=== PATIENT | female | born 1940 ===

== ENCOUNTER 2017-03-18 10:24 | Inpatient (IN) | payer SELFPAY ==
[2017-03-18 10:25] VITALS: BMI 33.0
[2017-03-18 10:41] LABS: BASO # 0.1 K/uL (0.0-0.2); BASO % 0.6 % (0.0-2.0); EOS # 0.3 K/uL (0.0-0.7); EOS % 2.1 % (0.0-4.0); HEMATOCRIT 39.1 % (34.0-47.0); LYMPH # 8.2 K/uL (1.0-4.3); LYMPH % 52.2 % (20.0-40.0); MEAN CELL VOLUME 92.9 fL (81.0-99.0); MEAN CORPUSCULAR HEMOGLOBIN 30.2 pg (27.0-31.0); MEAN CORPUSCULAR HGB CONC 32.5 g/dL (33.0-37.0); MEAN PLATELET VOLUME 10.3 fL (7.2-11.7); MONO # 1.1 K/uL (0.0-0.8); NRBC % 0.1 % (0.0-2.0); RED CELL DISTRIBUTION WIDTH 12.7 % (11.5-14.5); WHITE BLOOD COUNT 15.6 K/uL (4.8-10.8)
--- NOTE | 2017-03-18 10:43 | C.PDOC ---
History Of Present Illness 74 y/o female with PMHx of HTN presents to ED as per son stating he found her unconscious. Patient was previously noted to be well before being unconscious. Patient arrived to ED unresponsive. Patient is visiting from [facility]. No other complaints at this time. Chief Complaint (Nursing): Altered Mental Status History Per: Family (SON ) History/Exam Limitations: Clinical Condition Onset/Duration Of Symptoms: Hrs Current Symptoms Are (Timing): Still Present Past Medical History Reviewed: Historical Data, Nursing Documentation, Vital Signs Vital Signs: Last Vital Signs Temp 96.3 F L 03/19/17 16:00 Pulse 76 03/19/17 17:00 Resp 12 03/19/17 17:00 BP 161/86 H 03/19/17 16:45 Pulse Ox 100 03/19/17 17:49 - Medical History PMH: HTN Family History: States: No Known Family Hx - Social History Hx Alcohol Use: No Hx Substance Use: No - Immunization History Hx Tetanus Toxoid Vaccination: No Hx Influenza Vaccination: No Hx Pneumococcal Vaccination: No Review Of Systems Review Of Systems: ROS cannot be obtained secondary to pt's inabilty to answer questions. Physical Exam - Physical Exam Skin: Warm Head: Atraumatic Eye(s): bilateral: PERRL (minimally reactive) Nose: No Epistaxis Tongue: No Swelling Lips: No Swelling Neck: Supple Cardiovascular: Rhythm Regular Respiratory: No Accessory Muscle Use, No Rales, No Rhonchi Gastrointestinal/Abdominal: Soft Extremity: No Swelling Pulses: Left Radial: Normal, Right Radial: Normal Neurological/Psych: No Response To Commands ED Course And Treatment - Laboratory Results Result Diagrams: 03/19/17 06:46 03/19/17 06:46 O2 Sat by Pulse Oximetry: 100 (RA) Pulse Ox Interpretation: Normal Critical Care Time - Critical Care Note Total Time (in mins): 60 Documented critical care: time excludes all time spent performing seperately billable procedures. NIHSS Stroke Scale - Date/Time Evaluation Performed Date Performed: 03/18/17 Time Performed: 10:25 - How Severe is the Stoke Level of Consciousness: 3=Unresponsive LOC to Questions: 2=Neither correct LOC to commands: 2=Neither correct Best Gaze: 0=Normal Visual: 0=No visual loss Facial: 0=Normal Motor Arm - Left: 4=No movement Motor Arm - Right: 4=No movement Motor Leg - Left: 4=No movement Motor Leg - Right: 4=No movement Limb Ataxia: 0=Absent Sensory: 2=Severe to total loss Best Language: 3=Mute Dysarthia: 0=Normal articulation Extinction & Inattention (Neglect): 0=Normal, no object Score: 28 Severity Of Stroke: 21-42= Severe Stroke rTPA Inclusion/Exclusion - Refusal of Treatment Patient Refused Treatment: No - Inclusion Criteria for Altepase Patient is 18 years or Older: Yes Clinical DX Ischemic Stroke Cause Neurological Deficit: No Time of Onset Established Less Than 270 Mins Before TX Begin: Yes Risk/Benefit Discussed With Patient/Family Member Present: No Medical Decision Making Medical Decision Makin CT shows ICH. NSGY paged and surya paged for possible transfer. [address] Baker who says prognosis is extremely poor and rec no aggressive treatment. 1115 I spoke with the pts son and he agreed no aggressive measures at this time , no transfer, no CPR. EKG: Interpreted by Me Sinus Bradycardia 49 bpm first degree AV block No STEMI Head CT: Read by Radiologist (Dr. Benjamin, Rory ADAMS) PROCEDURE: CT HEAD WITHOUT CONTRAST. HISTORY: Code Stroke COMPARISON: None available. TECHNIQUE: Axial computed tomography images were obtained through the head/brain without intravenous contrast. Radiation dose: Total exam DLP = 1552.6 mGy-cm. This CT exam was performed using one or more of the following dose reduction techniques: Automated exposure control, adjustment of the mA and/or kV according to patient size, and/or use of iterative reconstruction technique. FINDINGS: HEMORRHAGE: Large parenchymal hemorrhage primarily affecting the right temporal parietal lobes as well as right frontal lobe. Direct extension, intraventricular hemorrhage with blood in the a lateral ventricles and 4th ventricle as well as 3rd ventricle. Profound cortical effacement, edema, midline shift. Nonvisualization of the basilar cisterns suggests a component of uncal herniation. There is a component of subarachnoid hemorrhage without extra-axial fluid. Please note on the axial images there is a hypodense well-circumscribed focus in the region of the right internal carotid artery and this may represent hemorrhage perhaps from right ICA aneurysm. No evidence of acute territorial infarction. CALVARIUM: Unremarkable. PARANASAL SINUSES: Unremarkable as visualized. No significant inflammatory changes. MASTOID AIR CELLS: Unremarkable as visualized. No inflammatory changes. OTHER FINDINGS: None. IMPRESSION: Large parenchymal hemorrhage right parietal region, with intraventricular hemorrhage, extensive edema, mass effect,, subarachnoid hemorrhage, midline shift and findings suggestive of uncal herniation. Additional details, information provided in the commentary. Code stroke protocol: Study completed 10:58 Radiologist notified 11:05 Results conveyed verbally at 11:07. I discussed the findings with the attending physician in the emergency department Stephan Levine M.D. Interpretation finalized and available for review 11:11. March 18, 2017. Disposition - Disposition Disposition: HOSPITALIZED Disposition Time: 11:42 Condition: CRITICAL - Clinical Impression Clinical Impression: Intracranial hemorrhage - PA / INTERNAL AUDIT SENIOR MANAGER / Resident Statement MD/DO has reviewed & agrees with the documentation as recorded. MD/DO has examined the patient and agrees with the treatment plan. - Scribe Statement The provider has reviewed the documentation as recorded by the Miguel Ángel Mix All medical record entries made by the Miguel Ángel were at my direction and personally dictated by me. I have reviewed the chart and agree that the record accurately reflects my personal performance of the history, physical exam, medical decision making, and the department course for this patient. I have also personally directed, reviewed, and agree with the discharge instructions and disposition.
[2017-03-18 10:48] LABS: CHLORIDE 104 mmol/L (98-107)
[2017-03-18 10:49] LABS: INR 0.9; SODIUM 137 mmol/L (132-148)
[2017-03-18 10:50] LABS: POTASSIUM 3.7 mmol/L (3.6-5.2)
[2017-03-18 10:51] LABS: CARBON DIOXIDE 20 mmol/L (22-30); CHOLESTEROL 237 mg/dL (0-199); GFR AFRICAN-AMERICAN > 60
[2017-03-18 10:52] LABS: ALB/GLOB RATIO 1.4 (1.0-2.1); ALKALINE PHOSPHATASE 76 U/L (38-126); ALT/SGPT 58 U/L (9-52); AST/SGOT 38 U/L (14-36); BILIRUBIN,TOTAL 0.8 mg/dL (0.2-1.3); BLOOD UREA NITROGEN 28 mg/dL (7-17); CALCIUM 8.7 mg/dl (8.6-10.4); GLUCOSE,RANDOM 146 mg/dL (65-105); TOTAL PROTEIN 7.9 g/dL (6.3-8.3)
[2017-03-18] MEDS: niCARdipine IV 25 MG in Sodium Chloride 0.9% 240 ML IV SCH ×3 (11:11→20:52)
--- NOTE | 2017-03-18 11:14 | CT ---
PROCEDURE: CT HEAD WITHOUT CONTRAST. HISTORY: Code Stroke COMPARISON: None available. TECHNIQUE: Axial computed tomography images were obtained through the head/brain without intravenous contrast. Radiation dose: Total exam DLP = 1552.6 mGy-cm. This CT exam was performed using one or more of the following dose reduction techniques: Automated exposure control, adjustment of the mA and/or kV according to patient size, and/or use of iterative reconstruction technique. FINDINGS: HEMORRHAGE: Large parenchymal hemorrhage primarily affecting the right temporal parietal lobes as well as right frontal lobe. Direct extension, intraventricular hemorrhage with blood in the a lateral ventricles and 4th ventricle as well as 3rd ventricle. Profound cortical effacement, edema, midline shift. Nonvisualization of the basilar cisterns suggests a component of uncal herniation. There is a component of subarachnoid hemorrhage without extra-axial fluid. Please note on the axial images there is a hypodense well-circumscribed focus in the region of the right internal carotid artery and this may represent hemorrhage perhaps from right ICA aneurysm. No evidence of acute territorial infarction. CALVARIUM: Unremarkable. PARANASAL SINUSES: Unremarkable as visualized. No significant inflammatory changes. MASTOID AIR CELLS: Unremarkable as visualized. No inflammatory changes. OTHER FINDINGS: None. IMPRESSION: Large parenchymal hemorrhage right parietal region, with intraventricular hemorrhage, extensive edema, mass effect,, subarachnoid hemorrhage, midline shift and findings suggestive of uncal herniation. Additional details, information provided in the commentary. Code stroke protocol: Study completed 10:58 Radiologist notified 11:05 Results conveyed verbally at 11:07. I discussed the findings with the attending physician in the emergency department Stephan Levine M.D. Interpretation finalized and available for review 11:11. March 18, 2017.
[2017-03-18 11:33] LABS: ABG ALLEN TEST UNABLE; ABG MECHANICAL RATE 20; DRAW SITE LR
[2017-03-18 11:37] LABS: ATERIAL BLOOD GAS PEEP 5
--- NOTE | 2017-03-18 12:09 | RAD ---
HISTORY: code stroke COMPARISON: None available. TECHNIQUE: Chest, one view. FINDINGS: Endotracheal tube terminates approximately 4.5 cm above the ignacia. Examination limited by habitus and hypoinflation. LUNGS: No focal consolidation. Calcification projects over the left lung apex medially, unclear etiology, possibly vascular. Please note that chest x-ray has limited sensitivity for the detection of pulmonary masses. PLEURA: No significant pleural effusion identified. No definite pneumothorax . CARDIOVASCULAR: Heart size appears top normal. Atherosclerotic calcifications of the aorta. OSSEOUS STRUCTURES: Degenerative changes. Acromioclavicular arthropathy. VISUALIZED UPPER ABDOMEN: Unremarkable. OTHER FINDINGS: None. IMPRESSION: Endotracheal tube terminates approximately 4.5 cm above the ignacia. Medial left lung apex calcifications, unclear etiology possibly vascular.
--- NOTE | 2017-03-18 14:36 | CP.PCM.HP ---
<Anish Garner - Last Filed: 03/18/17 14:25> History of Present Illness - History of Present Illness History of Present Illness: This is a 74 yo F with OMH of HTN that presented to the ED via EMS after son found the pt unconscious. Per son, the pt was observed to be well before being found unconscious. Per family, the pt was visiting from [facility]. Pt intubated on arrival in the ED. No further ROS obtainable. Present on Admission - Present on Admission Any Indicators Present on Admission: No Review of Systems - Review of Systems Systems not reviewed;Unavailable: Intubated Past Patient History - Infectious Disease Hx of Infectious Diseases: None - Past Medical History & Family History Past Medical History?: Yes - Past Social History Smoking Status: Never Smoked - CARDIAC Hx Hypertension: Yes - MUSCULOSKELETAL/RHEUMATOLOGICAL Hx Degenerative Joint Disease: Yes (knee problem) - PSYCHIATRIC Hx Substance Use: No - SURGICAL HISTORY Hx Surgeries: No - ANESTHESIA Hx Anesthesia: Yes Hx Anesthesia Reactions: No Meds Allergies/Adverse Reactions: Allergies Allergy/AdvReac Type Severity Reaction Status Date / Time No Known Allergies Allergy Verified 03/18/17 10:25 Physical Exam - Constitutional Appears: Other (intubated) - Head Exam Head Exam: ATRAUMATIC, NORMOCEPHALIC - Eye Exam Eye Exam: Normal appearance (no corneal reflex) Pupil Exam: Fixed - ENT Exam ENT Exam: Mucous Membranes Moist - Respiratory Exam Respiratory Exam: Clear to Auscultation Bilateral Additional comments: On vent - Cardiovascular Exam Cardiovascular Exam: +S1, +S2 - GI/Abdominal Exam GI & Abdominal Exam: Normal Bowel Sounds, Soft - Extremities Exam Extremities exam: Positive for: normal capillary refill. Negative for: pedal edema - Neurological Exam Additional comments: Intubated, unresponsive to pain or verbal stimuli. No reflexes appreciated - Skin Skin Exam: Dry, Warm Results - Vital Signs Recent Vital Signs: Last Vital Signs Temp 97.6 F 03/18/17 13:15 Pulse 74 03/18/17 13:15 Resp 20 03/18/17 13:15 BP 170/61 H 03/18/17 13:15 Pulse Ox 99 03/18/17 13:15 - Labs Result Diagrams: 03/18/17 10:33 03/18/17 10:33 Assessment & Plan - Assessment and Plan (Free Text) Assessment: [age] F with significant CVA, seen on CT, now unresponsive requiring mechanical ventilation Plan: Cerebral vascular accident - CT head - Large parenchymal hemorrhage right parietal region, with intraventricular hemorrhage, extensive edema, mass effect,, subarachnoid hemorrhage, midline shift and findings suggestive of uncal herniation. Additional details, information provided in the commentary. - Case has been discussed with family, pt is now DNR. Family agrees to supportive measures only at this point. - Pt completely unresponsive, requiring mechanical ventilation - Per neurosurg - no intervention - Consult palliative care - ICU for monitoring GI ppx - Protonix Prognosis poor <Jt Arzola - Last Filed: 03/18/17 15:34> Results - Vital Signs Recent Vital Signs: Last Vital Signs Temp 97.6 F 03/18/17 13:15 Pulse 74 03/18/17 13:15 Resp 20 03/18/17 13:15 BP 170/61 H 03/18/17 13:15 Pulse Ox 99 03/18/17 13:15 - Labs Result Diagrams: 03/18/17 10:33 03/18/17 10:33 Attending/Attestation - Attestation I have personally seen and examined this patient.: Yes I have fully participated in the care of the patient.: Yes I have reviewed all pertinent clinical information: Yes Notes (Text): 03/18/17 15:29 Medical Attending: Patient was seen earlier while she was in the ER. She had been already intubated by the time I had arrived. Family was not present at that time however per nursing and ER physician after discussion with family the patient was made DNR. Per nursing she was never responding to commands or stimuli when she had arrived in the ER. Some very minimal movement in the hands that mayhave been a seizure they said. When I saw and examined she was intubated, non responding to commands or stimuli - there was no pupillary response to light shine in the eyes. Reviewed the CT of the head and it shows an impressive area of hemmorage. There is a midline shift as well as edema. The right ventricle also pressure. Likey herniation as well. Unfourtunately overall prognosis is very poor at this time. She will be monitored in the ICU for the time being. Jt Arzola
--- NOTE | 2017-03-18 14:50 | CP.PCM.CON ---
<Anish Garner - Last Filed: 03/18/17 14:48> History of Present Illness - History of Present Illness History of Present Illness: ICU consult note This is a 74 yo F with OMH of HTN that presented to the ED via EMS after son found the pt unconscious. Per son, the pt was observed to be well before being found unconscious. Per family, the pt was visiting from [facility]. Pt intubated on arrival in the ED. No further ROS obtainable. Review of Systems - Review of Systems Systems not reviewed;Unavailable: Intubated Past Patient History - Infectious Disease Hx of Infectious Diseases: None - Past Medical History & Family History Past Medical History?: Yes - Past Social History Smoking Status: Never Smoked - CARDIAC Hx Hypertension: Yes - MUSCULOSKELETAL/RHEUMATOLOGICAL Hx Degenerative Joint Disease: Yes (knee problem) - PSYCHIATRIC Hx Substance Use: No - SURGICAL HISTORY Hx Surgeries: No - ANESTHESIA Hx Anesthesia: Yes Hx Anesthesia Reactions: No Meds Allergies/Adverse Reactions: Allergies Allergy/AdvReac Type Severity Reaction Status Date / Time No Known Allergies Allergy Verified 03/18/17 10:25 - Medications Medications: Current Medications Nicardipine HCl 25 mg/ Sodium (Chloride) 250 mls @ 50 mls/hr IV .Q5H GILBERTO; 5 MG/ HR PRN Reason: Protocol Last Admin: 03/18/17 11:11 Dose: 50 mls/hr Pantoprazole Sodium (Protonix Inj) 40 mg IVP DAILY GILBERTO Physical Exam - Constitutional Appears: Other (Intubated) - Head Exam Head Exam: ATRAUMATIC, NORMOCEPHALIC - Eye Exam Eye Exam: Normal appearance (No corneal reflec) Pupil Exam: Fixed - ENT Exam ENT Exam: Mucous Membranes Moist - Respiratory Exam Respiratory Exam: Clear to Auscultation Bilateral Additional comments: On vent - Cardiovascular Exam Cardiovascular Exam: +S1, +S2 - GI/Abdominal Exam GI & Abdominal Exam: Normal Bowel Sounds, Soft - Extremities Exam Extremities exam: Positive for: normal capillary refill - Neurological Exam Additional comments: Unresponsive to verbal and painful stimuli, no reflexes appreciated - Skin Skin Exam: Dry, Warm Results - Vital Signs Recent Vital Signs: Last Vital Signs Temp 97.6 F 03/18/17 13:15 Pulse 74 03/18/17 13:15 Resp 20 03/18/17 13:15 BP 170/61 H 03/18/17 13:15 Pulse Ox 99 03/18/17 13:15 - Labs Result Diagrams: 03/18/17 10:33 03/18/17 10:33 Assessment & Plan - Assessment and Plan (Free Text) Assessment: [age] F with significant CVA, seen on CT, now unresponsive requiring mechanical ventilation Plan: Cerebral vascular accident - CT head - Large parenchymal hemorrhage right parietal region, with intraventricular hemorrhage, extensive edema, mass effect,, subarachnoid hemorrhage, midline shift and findings suggestive of uncal herniation. Additional details, information provided in the commentary. - Case has been discussed with family, pt is now DNR. Family agrees to supportive measures only at this point. - Pt completely unresponsive, requiring mechanical ventilation - Per neurosurg - no intervention - Consult palliative care - ICU for monitoring GI ppx - Protonix Prognosis poor <Doron Tadeo - Last Filed: 03/18/17 16:14> Meds - Medications Medications: Current Medications Nicardipine HCl 25 mg/ Sodium (Chloride) 250 mls @ 50 mls/hr IV .Q5H GILBERTO; 5 MG/ HR PRN Reason: Protocol Last Admin: 03/18/17 11:11 Dose: 50 mls/hr Pantoprazole Sodium (Protonix Inj) 40 mg IVP DAILY GILBERTO Results - Vital Signs Recent Vital Signs: Last Vital Signs Temp 96.6 F L 03/18/17 16:00 Pulse 63 03/18/17 16:04 Resp 20 03/18/17 16:04 BP 141/43 L 03/18/17 16:04 Pulse Ox 100 03/18/17 16:04 - Labs Result Diagrams: 03/18/17 10:33 03/18/17 10:33 Attending/Attestation - Attestation I have personally seen and examined this patient.: Yes I have fully participated in the care of the patient.: Yes I have reviewed all pertinent clinical information: Yes Notes (Text): 03/18/17 16:10 Patient seen and examined. 76-year-old female with history of hypertension was brought in after she was found unresponsive with large intracerebral bleed. Patient intubated on ventilatory support with no gag, corneal REFLEXES. Prognosis poor Palliative care consult
[2017-03-18] MEDS: Sodium Chloride 0.9% 1,000 ML IV SCH ×2 (18:45→20:00)
[2017-03-18] MEDS ORDERED: Sodium Chloride 0.9% 500 ML IV ONE (19:00)
[2017-03-18] MEDS: Phenylephrine 30 MG in Sodium Chloride 0.9% 250 ML IV PRN (20:45)
[2017-03-19 05:12] LABS: ABG MECHANICAL RATE 20; ATERIAL BLOOD GAS PEEP 5
[2017-03-19 06:11] LABS: DRAW SITE RR
[2017-03-19 06:55] LABS: BASO % 0.4 % (0.0-2.0); EOS # 0.1 K/uL (0.0-0.7); EOS % 1.9 % (0.0-4.0); HEMATOCRIT 36.1 % (34.0-47.0); LYMPH # 1.3 K/uL (1.0-4.3); LYMPH % 18.5 % (20.0-40.0); MEAN CELL VOLUME 91.9 fL (81.0-99.0); MEAN CORPUSCULAR HEMOGLOBIN 30.5 pg (27.0-31.0); MEAN CORPUSCULAR HGB CONC 33.2 g/dL (33.0-37.0); MEAN PLATELET VOLUME 10.2 fL (7.2-11.7); MONO # 0.4 K/uL (0.0-0.8); MONO % 5.1 % (0.0-10.0); NRBC % 0.1 % (0.0-2.0)
[2017-03-19 06:57] LABS: CHLORIDE 118 mmol/L (98-107); SODIUM 145 mmol/L (132-148)
[2017-03-19 06:58] LABS: POTASSIUM 5.7 mmol/L (3.6-5.2)
[2017-03-19 07:00] LABS: ALB/GLOB RATIO 1.1 (1.0-2.1); ALKALINE PHOSPHATASE 49 U/L (38-126); ALT/SGPT 29 U/L (9-52); AST/SGOT 49 U/L (14-36); BILIRUBIN,TOTAL 2.1 mg/dL (0.2-1.3); BLOOD UREA NITROGEN 22 mg/dL (7-17); CALCIUM 8.1 mg/dl (8.6-10.4); CARBON DIOXIDE 17 mmol/L (22-30); GFR AFRICAN-AMERICAN > 60; GLUCOSE,RANDOM 103 mg/dL (65-105); PHOSPHOROUS 2.5 mg/dL (2.5-4.5); TOTAL PROTEIN 6.6 g/dL (6.3-8.3)
[2017-03-19 07:01] LABS: MAGNESIUM 2.3 mg/dL (1.6-2.3)
[2017-03-19] MEDS: Sodium Chloride 0.9% 1,000 ML IV SCH ×3 (07:32→17:11)
--- NOTE | 2017-03-19 10:43 | RAD ---
Chest x-ray single frontal view History: Intubated. Comparison: 03/18/2017 Findings: Endotracheal tube extending into the mid thoracic trachea. Biapical pleural thickening with upper lobe granulomatous changes. Persistent medial left lung apex calcifications, unclear etiology. Mild venous congestion. Patchy increased markings at the left lung base. Degenerative changes in the spine and shoulders with calcific tendinopathy of the left proximal humerus. Impression: Endotracheal tube extending into the mid thoracic trachea. Additional findings as above.
--- NOTE | 2017-03-19 13:35 | CP.PCM.CON ---
History of Present Illness - History of Present Illness History of Present Illness: Palliative consult Requested by David DELGADO Reason: goals of care discussion Patient is a 76 yo female admitted from home where she was found unresponsive on the couch, by her son. The son drove her to this hospital ED, where she was intubated for respiratory support. The CT head was significant for large subarchnoid hemorrhage. In ED the son decided against CPR if it should be needed. Patient remains on ICU in very poor clinical presentation. PMH: HTN, treated at [facility]. Hx: Arrived from [facility] about one moth ago for visit, stayed in her son's house, three more sons still in [facility]. Hx: unknown Review of Systems - Review of Systems Systems not reviewed;Unavailable: Intubated Past Patient History - Infectious Disease Hx of Infectious Diseases: None - Past Medical History & Family History Past Medical History?: Yes - Past Social History Smoking Status: Never Smoked - CARDIAC Hx Hypertension: Yes - MUSCULOSKELETAL/RHEUMATOLOGICAL Hx Falls: Yes - PSYCHIATRIC Hx Substance Use: No - SURGICAL HISTORY Hx Surgeries: No - ANESTHESIA Hx Anesthesia: Yes Hx Anesthesia Reactions: No Meds Allergies/Adverse Reactions: Allergies Allergy/AdvReac Type Severity Reaction Status Date / Time No Known Allergies Allergy Verified 03/18/17 10:25 - Medications Medications: Current Medications Sodium Chloride (Sodium Chloride 0.9%) 1,000 mls @ 100 mls/hr IV .Q10H [facility] Last Admin: 03/19/17 07:32 Dose: 100 mls/hr Phenylephrine HCl 30 mg/ (Sodium Chloride) 253 mls @ 10.12 mls/hr IV .Q24H PRN ; Protocol; 20 MCG/MIN PRN Reason: TITRATE PER MD ORDER Last Titration: 03/19/17 07:30 Dose: 20 mcg/min, 10.12 mls/hr Pantoprazole Sodium (Protonix Inj) 40 mg IVP DAILY [facility] Last Admin: 03/19/17 09:02 Dose: 40 mg Physical Exam - Constitutional Appears: In Acute Distress - Head Exam Head Exam: ATRAUMATIC, NORMAL INSPECTION, NORMOCEPHALIC - Eye Exam Eye Exam: Normal appearance Pupil Exam: Fixed - ENT Exam ENT Exam: Mucous Membranes Dry Additional comments: ET tube - Neck Exam Neck exam: Positive for: Normal Inspection - Respiratory Exam Additional comments: On MV, no saponaceous breathing - Cardiovascular Exam Cardiovascular Exam: REGULAR RHYTHM - GI/Abdominal Exam GI & Abdominal Exam: Hypoactive Bowel Sounds - Rectal Exam Rectal Exam: Deferred - Exam Additional comments: Thornton cath - Extremities Exam Extremities exam: Positive for: normal inspection - Back Exam Back exam: NORMAL INSPECTION - Neurological Exam Neurological exam: Motor Sensory Deficit - Psychiatric Exam Psychiatric exam: Flat Affect - Skin Skin Exam: Normal Color Results - Vital Signs Recent Vital Signs: Last Vital Signs Temp 97 F L 03/19/17 12:55 Pulse 56 L 03/19/17 13:00 Resp 12 03/19/17 13:00 BP 104/51 L 03/19/17 12:44 Pulse Ox 98 03/19/17 13:00 - Labs Result Diagrams: 03/19/17 06:46 03/19/17 06:46 Labs: Laboratory Results - last 24 hr 03/18/17 03/19/17 03/19/17 18:09 00:16 04:30 WBC RBC Hgb Hct MCV MCH MCHC RDW Plt Count MPV Neut % (Auto) Lymph % (Auto) [place] % (Auto) Eos % (Auto) Baso % (Auto) Neut # Lymph # [place] # Eos # Baso # Puncture Site Rr pCO2 18 L* pO2 194 H HCO3 20.7 L ABG pH 7.52 H ABG Total CO2 15.3 L ABG Base Excess -5.5 L Raudel Test Na A-a O2 Difference 140.0 Respiratory Index 0.7 Mechanical Rate 20 FiO2 50.0 Tidal Volume 400 PEEP 5 Crit Value Called To Hyun cavazos icu Crit Value Called By David forman/rt Crit Value Read Back Y Blood Gas Notified Time 515 Sodium Potassium Chloride Carbon Dioxide Anion Gap BUN Creatinine Est GFR ( Amer) Est GFR (Non-Af Amer) POC Glucose (mg/dL) 210 H 115 H Random Glucose Calcium Phosphorus Magnesium Total Bilirubin AST ALT Alkaline Phosphatase Total Protein Albumin Globulin Albumin/Globulin Ratio 03/19/17 03/19/17 03/19/17 06:30 06:46 06:46 WBC 7.0 D RBC 3.93 Hgb 12.0 Hct 36.1 MCV 91.9 MCH 30.5 MCHC 33.2 RDW 13.0 Plt Count 174 MPV 10.2 Neut % (Auto) 74.1 Lymph % (Auto) 18.5 L [place] % (Auto) 5.1 Eos % (Auto) 1.9 Baso % (Auto) 0.4 Neut # 5.2 Lymph # 1.3 [place] # 0.4 Eos # 0.1 Baso # 0.0 Puncture Site pCO2 pO2 HCO3 ABG pH ABG Total CO2 ABG Base Excess Raudel Test A-a O2 Difference Respiratory Index Mechanical Rate FiO2 Tidal Volume PEEP Crit Value Called To Crit Value Called By Crit Value Read Back Blood Gas Notified Time Sodium 145 Potassium 5.7 H Chloride 118 H Carbon Dioxide 17 L Anion Gap 16 BUN 22 H Creatinine 0.6 L Est GFR ( Amer) > 60 Est GFR (Non-Af Amer) > 60 POC Glucose (mg/dL) 113 H Random Glucose 103 Calcium 8.1 L Phosphorus 2.5 Magnesium 2.3 Total Bilirubin 2.1 H AST 49 H D ALT 29 Alkaline Phosphatase 49 Total Protein 6.6 Albumin 3.5 D Globulin 3.2 Albumin/Globulin Ratio 1.1 03/19/17 11:39 WBC RBC Hgb Hct MCV MCH MCHC RDW Plt Count MPV Neut % (Auto) Lymph % (Auto) [place] % (Auto) Eos % (Auto) Baso % (Auto) Neut # Lymph # [place] # Eos # Baso # Puncture Site pCO2 pO2 HCO3 ABG pH ABG Total CO2 ABG Base Excess Raudel Test A-a O2 Difference Respiratory Index Mechanical Rate FiO2 Tidal Volume PEEP Crit Value Called To Crit Value Called By Crit Value Read Back Blood Gas Notified Time Sodium Potassium Chloride Carbon Dioxide Anion Gap BUN Creatinine Est GFR ( Amer) Est GFR (Non-Af Amer) POC Glucose (mg/dL) 85 Random Glucose Calcium Phosphorus Magnesium Total Bilirubin AST ALT Alkaline Phosphatase Total Protein Albumin Globulin Albumin/Globulin Ratio Assessment & Plan - Assessment and Plan (Free Text) Assessment: Palliative consult Code status DNR, there is no advance directive on chart. ROS unobtainable from patient due to severe AMS and intubation. PPS 0% I reviewed medical records, all diagnostic studies, examined patient in the bed and met with family at bed side. Goals of care discussed. ROS obtained from nursing and family. Case discussed with Doctor Carlyle and Resident Anish DELGADO. Patient is unresponsive to stimuli, GCS of 3. Patient is fully supported by life support. Patient experiences no spontaneous breathing. Phenylepinepfrine IV on board. BP 120/61, HR 61, RR 12, O2Sat 98%. ICU team feels that based on clinical and neurogical presentation, and diagnostic studies, meaningful recovery was not expected. With son Joseph present and many other family members, I shared those concerns. Joseph admitted being well made aware of by the ICU attending, and despite the sadness regarding this unfortunate event, he has accepted " God's will". I further offered more information regarding the removal of life support. Family was mostly concerned with patient's comfort throughout the process. I reassured them that comfort was a common goal and that there were measures supporting it. We agreed to start terminal extubation process at 10 am tomorrow morning. The ICU team was made aware of this. Further , I assisted the son in completing the POLST, asking for DNR/DNI. Joseph plans to return patient's body back to [facility] for . Impression * This is a very unfortunate lady , S/P largesubarchnoid bleeding * Very poor clinical presentation * Meaningful recovery is not expected * Family came to term and decided to allow natural Suggestion * Agree with removal of life support
--- NOTE | 2017-03-19 14:12 | CP.PCM.PN ---
Subjective - Date & Time of Evaluation Date of Evaluation: 03/19/17 Time of Evaluation: 14:00 - Subjective Subjective: Patient seen and examined by me with family members present at bedside and they were aware of the prognosis already. Spoke with ICU staff and nurse. There is plans for terminal extubation sometime tomorrow morning. BP was lower in the day and she is currently on phenylephrine ggt and IVF On my exam the situation is mostly the same. The pupils very dilated and non resposnive to light. Objective - Vital Signs/Intake and Output Vital Signs (last 24 hours): Temp Pulse Resp BP Pulse Ox 97 F L 56 L 12 104/51 L 98 03/19/17 12:55 03/19/17 13:00 03/19/17 13:00 03/19/17 12:44 03/19/17 13:00 Intake and Output: 03/19/17 03/19/17 06:59 18:59 Intake Total 2075.5 970 Output Total 960 500 Balance 1115.5 470 - Medications Medications: Current Medications Sodium Chloride (Sodium Chloride 0.9%) 1,000 mls @ 100 mls/hr IV .Q10H [facility] Last Admin: 03/19/17 07:32 Dose: 100 mls/hr Phenylephrine HCl 30 mg/ (Sodium Chloride) 253 mls @ 10.12 mls/hr IV .Q24H PRN ; Protocol; 20 MCG/MIN PRN Reason: TITRATE PER MD ORDER Last Titration: 03/19/17 07:30 Dose: 20 mcg/min, 10.12 mls/hr Pantoprazole Sodium (Protonix Inj) 40 mg IVP DAILY [facility] Last Admin: 03/19/17 09:02 Dose: 40 mg - Labs Labs: 03/19/17 06:46 03/19/17 06:46 PT 10.2 SECONDS (9.7-12.2) 03/18/17 10:33 INR 0.9 03/18/17 10:33 APTT 22 SECONDS (21-34) 03/18/17 10:33 - Constitutional Appears: Chronically Ill - Eye Exam Eye Exam: absent: EOMI, Normal appearance Pupil Exam: Fixed Additional comments: Dialated, no response to light - Respiratory Exam Additional comments: On mechanical intubation - Neurological Exam Neurological Exam: Altered. absent: Alert, Awake, Normal Gait, Oriented x3 - Psychiatric Exam Psychiatric exam: absent: Depressed, Flat Affect - Skin Skin Exam: Normal Color, Warm Assessment and Plan - Assessment and Plan (Free Text) Assessment: Patient is DNR, and there are plans for terminal extubation sometime tommorow. This is a 76 F with hemoragagic right frontal and right parietal region CVA, seen on CT. She is unresponsive and on mechanical ventilation Plan: Cerebral vascular accident - as mentioned before. DNR and pending terminal extubation tommorow. They are waiting for family - CT head - Large parenchymal hemorrhage right parietal region, with intraventricular hemorrhage, extensive edema, mass effect,, subarachnoid hemorrhage, midline shift and findings suggestive of uncal herniation. Additional details, information provided in the commentary. - Case has been discussed with family, pt is now DNR. Family agrees to supportive measures only at this point. - Pt completely unresponsive, requiring mechanical ventilation - Per neurosurg - no intervention - Consult palliative care - ICU for monitoring GI ppx - Protonix
--- NOTE | 2017-03-19 15:30 | CP.CCUPN ---
<Anish Garner - Last Filed: 03/19/17 15:26> CCU Subjective - Physician Review Subjective (Free Text): 03/19/17 15:26 PGY-1 ICU progress note Pt seen and examined at bedside. Intubated and sedated. No overnight events. Per staff, not even a cough reflex today. Remains unresponsive Critical Care Time Spent (in minutes): 35 CCU Objective - Vital Signs / Intake & Output Vital Signs (Last 4 hours): Vital Signs Temp Pulse Resp BP Pulse Ox 03/19/17 15:00 56 L 12 98 03/19/17 14:44 55 L 12 119/57 L 99 03/19/17 14:14 56 L 12 112/52 L 99 03/19/17 14:00 56 L 12 99 03/19/17 13:44 56 L 12 105/51 L 98 03/19/17 13:14 55 L 12 107/55 L 98 03/19/17 13:00 56 L 12 98 03/19/17 12:55 97 F L 100 03/19/17 12:44 58 L 12 104/51 L 98 03/19/17 12:14 58 L 12 119/62 98 03/19/17 12:00 57 L 12 98 03/19/17 11:44 59 L 12 121/61 98 Intake and Output (Last 8hrs): Intake & Output 03/19/17 03/19/17 03/19/17 06:59 14:59 22:59 Intake Total 847.5 1080 Output Total 685 550 Balance 162.5 530 Intake: IV 100 Intake, IV Amount 847.5 980 Left Wrist 100 Right Hand 47.5 80 Right Wrist 800 800 Output: Urine 685 550 Urethral (Thornton) 685 550 - Physical Exam Head: Positive for: Atraumatic, Normocephalic Pupils: Positive for: Non-Reactive Conjunctiva: Positive for: Normal Mouth: Positive for: Moist Mucous Membranes Respiratory/Chest: Positive for: Clear to Auscultation, Good Air Exchange, Other (intubated) Cardiovascular: Positive for: Regular Rate and Rhythm, Normal S1, S2 Abdomen: Positive for: Normal Bowel Sounds. Negative for: Distention Upper Extremity: Positive for: NORMAL PULSES Lower Extremity: Positive for: NORMAL PULSES Neurological: Positive for: Other (Unresponsive to pain and verbal stimuli. No reflexes precipitated) Skin: Positive for: Warm, Dry - Medications Active Medications: Active Medications Generic Name Dose Route Start Last Admin Trade Name Freq PRN Reason Stop Dose Admin Sodium Chloride 1,000 mls @ 100 mls/hr 03/18/17 18:45 03/19/17 07:32 Sodium Chloride 0.9% IV 100 mls/hr .Q10H GILBERTO Administration Phenylephrine HCl 30 mg/ 253 mls @ 10.12 mls/hr 03/18/17 20:33 03/19/17 07:30 Sodium Chloride IV 20 mcg/min .Q24H PRN 10.12 mls/hr TITRATE PER MD ORDER Titration Protocol 20 MCG/MIN Pantoprazole Sodium 40 mg 03/19/17 10:00 03/19/17 09:02 Protonix Inj IVP 40 mg DAILY GILBERTO Administration - Patient Studies Lab Studies: Microbiology Studies 03/18/17 Unknown MRSA Culture (Admit) - Final Nose MRSA NOT DETECTED Lab Studies 03/19/17 03/19/17 03/19/17 Range/Units 11:39 06:46 06:46 WBC 7.0 D (4.8-10.8) K/uL RBC 3.93 (3.80-5.20) Mil/uL Hgb 12.0 (11.0-16.0) g/dL Hct 36.1 (34.0-47.0) % MCV 91.9 (81.0-99.0) fL MCH 30.5 (27.0-31.0) pg MCHC 33.2 (33.0-37.0) g/dL RDW 13.0 (11.5-14.5) % Plt Count 174 (130-400) K/uL MPV 10.2 (7.2-11.7) fL Neut % (Auto) 74.1 (50.0-75.0) % Lymph % (Auto) 18.5 L (20.0-40.0) % Posey % (Auto) 5.1 (0.0-10.0) % Eos % (Auto) 1.9 (0.0-4.0) % Baso % (Auto) 0.4 (0.0-2.0) % Neut # 5.2 (1.8-7.0) K/uL Lymph # 1.3 (1.0-4.3) K/uL Posey # 0.4 (0.0-0.8) K/uL Eos # 0.1 (0.0-0.7) K/uL Baso # 0.0 (0.0-0.2) K/uL Puncture Site pCO2 (35-45) mm/Hg pO2 (80-100) mm/Hg HCO3 (21-28) mmol/L ABG pH (7.35-7.45) ABG Total CO2 (22-28) mmol/L ABG Base Excess (-2.0-3.0) mmol/L Raudel Test A-a O2 Difference mm/Hg Respiratory Index Mechanical Rate FiO2 % Tidal Volume PEEP Crit Value Called To Crit Value Called By Crit Value Read Back Blood Gas Notified Time Sodium 145 (132-148) mmol/L Potassium 5.7 H (3.6-5.2) mmol/L Chloride 118 H (98-107) mmol/L Carbon Dioxide 17 L (22-30) mmol/L Anion Gap 16 (10-20) BUN 22 H (7-17) mg/dL Creatinine 0.6 L (0.7-1.2) MG/DL Est GFR ( Amer) > 60 Est GFR (Non-Af Amer) > 60 POC Glucose (mg/dL) 85 (65-110) mg/dL Random Glucose 103 (65-105) mg/dL Calcium 8.1 L (8.6-10.4) mg/dl Phosphorus 2.5 (2.5-4.5) mg/dL Magnesium 2.3 (1.6-2.3) mg/dL Total Bilirubin 2.1 H (0.2-1.3) mg/dL AST 49 H D (14-36) U/L ALT 29 (9-52) U/L Alkaline Phosphatase 49 (38-126) U/L Total Protein 6.6 (6.3-8.3) g/dL Albumin 3.5 D (3.5-5.0) g/dL Globulin 3.2 (2.2-3.9) gm/dL Albumin/Globulin Ratio 1.1 (1.0-2.1) 03/19/17 03/19/17 03/19/17 Range/Units 06:30 04:30 00:16 WBC (4.8-10.8) K/uL RBC (3.80-5.20) Mil/uL Hgb (11.0-16.0) g/dL Hct (34.0-47.0) % MCV (81.0-99.0) fL MCH (27.0-31.0) pg MCHC (33.0-37.0) g/dL RDW (11.5-14.5) % Plt Count (130-400) K/uL MPV (7.2-11.7) fL Neut % (Auto) (50.0-75.0) % Lymph % (Auto) (20.0-40.0) % Posey % (Auto) (0.0-10.0) % Eos % (Auto) (0.0-4.0) % Baso % (Auto) (0.0-2.0) % Neut # (1.8-7.0) K/uL Lymph # (1.0-4.3) K/uL Posey # (0.0-0.8) K/uL Eos # (0.0-0.7) K/uL Baso # (0.0-0.2) K/uL Puncture Site Rr pCO2 18 L* (35-45) mm/Hg pO2 194 H (80-100) mm/Hg HCO3 20.7 L (21-28) mmol/L ABG pH 7.52 H (7.35-7.45) ABG Total CO2 15.3 L (22-28) mmol/L ABG Base Excess -5.5 L (-2.0-3.0) mmol/L Raudel Test Na A-a O2 Difference 140.0 mm/Hg Respiratory Index 0.7 Mechanical Rate 20 FiO2 50.0 % Tidal Volume 400 PEEP 5 Crit Value Called To Hyun cavazos icu Crit Value Called By David forman/rt Crit Value Read Back Y Blood Gas Notified Time 515 Sodium (132-148) mmol/L Potassium (3.6-5.2) mmol/L Chloride (98-107) mmol/L Carbon Dioxide (22-30) mmol/L Anion Gap (10-20) BUN (7-17) mg/dL Creatinine (0.7-1.2) MG/DL Est GFR ( Amer) Est GFR (Non-Af Amer) POC Glucose (mg/dL) 113 H 115 H (65-110) mg/dL Random Glucose (65-105) mg/dL Calcium (8.6-10.4) mg/dl Phosphorus (2.5-4.5) mg/dL Magnesium (1.6-2.3) mg/dL Total Bilirubin (0.2-1.3) mg/dL AST (14-36) U/L ALT (9-52) U/L Alkaline Phosphatase (38-126) U/L Total Protein (6.3-8.3) g/dL Albumin (3.5-5.0) g/dL Globulin (2.2-3.9) gm/dL Albumin/Globulin Ratio (1.0-2.1) 03/18/17 Range/Units 18:09 WBC (4.8-10.8) K/uL RBC (3.80-5.20) Mil/uL Hgb (11.0-16.0) g/dL Hct (34.0-47.0) % MCV (81.0-99.0) fL MCH (27.0-31.0) pg MCHC (33.0-37.0) g/dL RDW (11.5-14.5) % Plt Count (130-400) K/uL MPV (7.2-11.7) fL Neut % (Auto) (50.0-75.0) % Lymph % (Auto) (20.0-40.0) % Posey % (Auto) (0.0-10.0) % Eos % (Auto) (0.0-4.0) % Baso % (Auto) (0.0-2.0) % Neut # (1.8-7.0) K/uL Lymph # (1.0-4.3) K/uL Posey # (0.0-0.8) K/uL Eos # (0.0-0.7) K/uL Baso # (0.0-0.2) K/uL Puncture Site pCO2 (35-45) mm/Hg pO2 (80-100) mm/Hg HCO3 (21-28) mmol/L ABG pH (7.35-7.45) ABG Total CO2 (22-28) mmol/L ABG Base Excess (-2.0-3.0) mmol/L Raudel Test A-a O2 Difference mm/Hg Respiratory Index Mechanical Rate FiO2 % Tidal Volume PEEP Crit Value Called To Crit Value Called By Crit Value Read Back Blood Gas Notified Time Sodium (132-148) mmol/L Potassium (3.6-5.2) mmol/L Chloride (98-107) mmol/L Carbon Dioxide (22-30) mmol/L Anion Gap (10-20) BUN (7-17) mg/dL Creatinine (0.7-1.2) MG/DL Est GFR ( Amer) Est GFR (Non-Af Amer) POC Glucose (mg/dL) 210 H (65-110) mg/dL Random Glucose (65-105) mg/dL Calcium (8.6-10.4) mg/dl Phosphorus (2.5-4.5) mg/dL Magnesium (1.6-2.3) mg/dL Total Bilirubin (0.2-1.3) mg/dL AST (14-36) U/L ALT (9-52) U/L Alkaline Phosphatase (38-126) U/L Total Protein (6.3-8.3) g/dL Albumin (3.5-5.0) g/dL Globulin (2.2-3.9) gm/dL Albumin/Globulin Ratio (1.0-2.1) Laboratory Results - last 24 hr 03/18/17 03/19/17 03/19/17 18:09 00:16 04:30 WBC RBC Hgb Hct MCV MCH MCHC RDW Plt Count MPV Neut % (Auto) Lymph % (Auto) Posey % (Auto) Eos % (Auto) Baso % (Auto) Neut # Lymph # Posey # Eos # Baso # Puncture Site Rr pCO2 18 L* pO2 194 H HCO3 20.7 L ABG pH 7.52 H ABG Total CO2 15.3 L ABG Base Excess -5.5 L Raudel Test Na A-a O2 Difference 140.0 Respiratory Index 0.7 Mechanical Rate 20 FiO2 50.0 Tidal Volume 400 PEEP 5 Crit Value Called To Hyun cavazos icu Crit Value Called By David forman/rt Crit Value Read Back Y Blood Gas Notified Time 515 Sodium Potassium Chloride Carbon Dioxide Anion Gap BUN Creatinine Est GFR ( Amer) Est GFR (Non-Af Amer) POC Glucose (mg/dL) 210 H 115 H Random Glucose Calcium Phosphorus Magnesium Total Bilirubin AST ALT Alkaline Phosphatase Total Protein Albumin Globulin Albumin/Globulin Ratio 03/19/17 03/19/17 03/19/17 06:30 06:46 06:46 WBC 7.0 D RBC 3.93 Hgb 12.0 Hct 36.1 MCV 91.9 MCH 30.5 MCHC 33.2 RDW 13.0 Plt Count 174 MPV 10.2 Neut % (Auto) 74.1 Lymph % (Auto) 18.5 L Posey % (Auto) 5.1 Eos % (Auto) 1.9 Baso % (Auto) 0.4 Neut # 5.2 Lymph # 1.3 Posey # 0.4 Eos # 0.1 Baso # 0.0 Puncture Site pCO2 pO2 HCO3 ABG pH ABG Total CO2 ABG Base Excess Raudel Test A-a O2 Difference Respiratory Index Mechanical Rate FiO2 Tidal Volume PEEP Crit Value Called To Crit Value Called By Crit Value Read Back Blood Gas Notified Time Sodium 145 Potassium 5.7 H Chloride 118 H Carbon Dioxide 17 L Anion Gap 16 BUN 22 H Creatinine 0.6 L Est GFR ( Amer) > 60 Est GFR (Non-Af Amer) > 60 POC Glucose (mg/dL) 113 H Random Glucose 103 Calcium 8.1 L Phosphorus 2.5 Magnesium 2.3 Total Bilirubin 2.1 H AST 49 H D ALT 29 Alkaline Phosphatase 49 Total Protein 6.6 Albumin 3.5 D Globulin 3.2 Albumin/Globulin Ratio 1.1 03/19/17 11:39 WBC RBC Hgb Hct MCV MCH MCHC RDW Plt Count MPV Neut % (Auto) Lymph % (Auto) Posey % (Auto) Eos % (Auto) Baso % (Auto) Neut # Lymph # Posey # Eos # Baso # Puncture Site pCO2 pO2 HCO3 ABG pH ABG Total CO2 ABG Base Excess Raudel Test A-a O2 Difference Respiratory Index Mechanical Rate FiO2 Tidal Volume PEEP Crit Value Called To Crit Value Called By Crit Value Read Back Blood Gas Notified Time Sodium Potassium Chloride Carbon Dioxide Anion Gap BUN Creatinine Est GFR ( Amer) Est GFR (Non-Af Amer) POC Glucose (mg/dL) 85 Random Glucose Calcium Phosphorus Magnesium Total Bilirubin AST ALT Alkaline Phosphatase Total Protein Albumin Globulin Albumin/Globulin Ratio Fingerstick Blood Sugar Results: 85 Review of Systems - Review of Systems Systems not reviewed;Unavailable: Intubated Assessment/Plan - Assessment and Plan (Free Text) Assessment: 76 yo F with significant CVA, seen on CT, now unresponsive requiring mechanical ventilation. Plan: Palliative care on case. Family agrees to only supportive care at this point. Family meeting today and agreed to terminally extubate tomorrow around 10:30. Will continue to monitor and provide comfort care as needed. <Doron Tadeo - Last Filed: 03/19/17 17:28> CCU Objective - Vital Signs / Intake & Output Vital Signs (Last 4 hours): Vital Signs Temp Pulse Resp BP Pulse Ox 03/19/17 17:00 76 12 96 03/19/17 16:45 76 12 161/86 H 97 03/19/17 16:14 64 9 L 132/67 98 03/19/17 16:00 96.3 F L 62 12 98 03/19/17 15:44 55 L 12 115/54 L 98 03/19/17 15:14 57 L 12 127/56 L 98 03/19/17 15:00 56 L 12 98 03/19/17 14:44 55 L 12 119/57 L 99 03/19/17 14:14 56 L 12 112/52 L 99 03/19/17 14:00 56 L 12 99 03/19/17 13:44 56 L 12 105/51 L 98 Intake and Output (Last 8hrs): Intake & Output 03/19/17 03/19/17 03/19/17 06:59 14:59 22:59 Intake Total 847.5 1080 320 Output Total 685 650 325 Balance 162.5 430 -5 Intake: IV 100 Intake, IV Amount 847.5 980 320 Left Wrist 100 Right Hand 47.5 80 20 Right Wrist 800 800 300 Output: Urine 685 650 325 Urethral (Thornton) 685 650 325 - Medications Active Medications: Active Medications Generic Name Dose Route Start Last Admin Trade Name Freq PRN Reason Stop Dose Admin Sodium Chloride 1,000 mls @ 100 mls/hr 03/18/17 18:45 03/19/17 17:11 Sodium Chloride 0.9% IV 100 mls/hr .Q10H GILBERTO Administration Phenylephrine HCl 30 mg/ 253 mls @ 10.12 mls/hr 03/18/17 20:33 03/19/17 07:30 Sodium Chloride IV 20 mcg/min .Q24H PRN 10.12 mls/hr TITRATE PER MD ORDER Titration Protocol 20 MCG/MIN Pantoprazole Sodium 40 mg 03/19/17 10:00 03/19/17 09:02 Protonix Inj IVP 40 mg DAILY GILBERTO Administration - Patient Studies Lab Studies: Microbiology Studies 03/18/17 Unknown MRSA Culture (Admit) - Final Nose MRSA NOT DETECTED Lab Studies 03/19/17 03/19/17 03/19/17 Range/Units 11:39 06:46 06:46 WBC 7.0 D (4.8-10.8) K/uL RBC 3.93 (3.80-5.20) Mil/uL Hgb 12.0 (11.0-16.0) g/dL Hct 36.1 (34.0-47.0) % MCV 91.9 (81.0-99.0) fL MCH 30.5 (27.0-31.0) pg MCHC 33.2 (33.0-37.0) g/dL RDW 13.0 (11.5-14.5) % Plt Count 174 (130-400) K/uL MPV 10.2 (7.2-11.7) fL Neut % (Auto) 74.1 (50.0-75.0) % Lymph % (Auto) 18.5 L (20.0-40.0) % Posey % (Auto) 5.1 (0.0-10.0) % Eos % (Auto) 1.9 (0.0-4.0) % Baso % (Auto) 0.4 (0.0-2.0) % Neut # 5.2 (1.8-7.0) K/uL Lymph # 1.3 (1.0-4.3) K/uL Posey # 0.4 (0.0-0.8) K/uL Eos # 0.1 (0.0-0.7) K/uL Baso # 0.0 (0.0-0.2) K/uL Puncture Site pCO2 (35-45) mm/Hg pO2 (80-100) mm/Hg HCO3 (21-28) mmol/L ABG pH (7.35-7.45) ABG Total CO2 (22-28) mmol/L ABG Base Excess (-2.0-3.0) mmol/L Raudel Test A-a O2 Difference mm/Hg Respiratory Index Mechanical Rate FiO2 % Tidal Volume PEEP Crit Value Called To Crit Value Called By Crit Value Read Back Blood Gas Notified Time Sodium 145 (132-148) mmol/L Potassium 5.7 H (3.6-5.2) mmol/L Chloride 118 H (98-107) mmol/L Carbon Dioxide 17 L (22-30) mmol/L Anion Gap 16 (10-20) BUN 22 H (7-17) mg/dL Creatinine 0.6 L (0.7-1.2) MG/DL Est GFR ( Amer) > 60 Est GFR (Non-Af Amer) > 60 POC Glucose (mg/dL) 85 (65-110) mg/dL Random Glucose 103 (65-105) mg/dL Calcium 8.1 L (8.6-10.4) mg/dl Phosphorus 2.5 (2.5-4.5) mg/dL Magnesium 2.3 (1.6-2.3) mg/dL Total Bilirubin 2.1 H (0.2-1.3) mg/dL AST 49 H D (14-36) U/L ALT 29 (9-52) U/L Alkaline Phosphatase 49 (38-126) U/L Total Protein 6.6 (6.3-8.3) g/dL Albumin 3.5 D (3.5-5.0) g/dL Globulin 3.2 (2.2-3.9) gm/dL Albumin/Globulin Ratio 1.1 (1.0-2.1) 03/19/17 03/19/17 03/19/17 Range/Units 06:30 04:30 00:16 WBC (4.8-10.8) K/uL RBC (3.80-5.20) Mil/uL Hgb (11.0-16.0) g/dL Hct (34.0-47.0) % MCV (81.0-99.0) fL MCH (27.0-31.0) pg MCHC (33.0-37.0) g/dL RDW (11.5-14.5) % Plt Count (130-400) K/uL MPV (7.2-11.7) fL Neut % (Auto) (50.0-75.0) % Lymph % (Auto) (20.0-40.0) % Posey % (Auto) (0.0-10.0) % Eos % (Auto) (0.0-4.0) % Baso % (Auto) (0.0-2.0) % Neut # (1.8-7.0) K/uL Lymph # (1.0-4.3) K/uL Posey # (0.0-0.8) K/uL Eos # (0.0-0.7) K/uL Baso # (0.0-0.2) K/uL Puncture Site Rr pCO2 18 L* (35-45) mm/Hg pO2 194 H (80-100) mm/Hg HCO3 20.7 L (21-28) mmol/L ABG pH 7.52 H (7.35-7.45) ABG Total CO2 15.3 L (22-28) mmol/L ABG Base Excess -5.5 L (-2.0-3.0) mmol/L Raudel Test Na A-a O2 Difference 140.0 mm/Hg Respiratory Index 0.7 Mechanical Rate 20 FiO2 50.0 % Tidal Volume 400 PEEP 5 Crit Value Called To Hyun cavazos icu Crit Value Called By David forman/rt Crit Value Read Back Y Blood Gas Notified Time 515 Sodium (132-148) mmol/L Potassium (3.6-5.2) mmol/L Chloride (98-107) mmol/L Carbon Dioxide (22-30) mmol/L Anion Gap (10-20) BUN (7-17) mg/dL Creatinine (0.7-1.2) MG/DL Est GFR ( Amer) Est GFR (Non-Af Amer) POC Glucose (mg/dL) 113 H 115 H (65-110) mg/dL Random Glucose (65-105) mg/dL Calcium (8.6-10.4) mg/dl Phosphorus (2.5-4.5) mg/dL Magnesium (1.6-2.3) mg/dL Total Bilirubin (0.2-1.3) mg/dL AST (14-36) U/L ALT (9-52) U/L Alkaline Phosphatase (38-126) U/L Total Protein (6.3-8.3) g/dL Albumin (3.5-5.0) g/dL Globulin (2.2-3.9) gm/dL Albumin/Globulin Ratio (1.0-2.1) 03/18/ Range/Units 18:09 WBC (4.8-10.8) K/uL RBC (3.80-5.20) Mil/uL Hgb (11.0-16.0) g/dL Hct (34.0-47.0) % MCV (81.0-99.0) fL MCH (27.0-31.0) pg MCHC (33.0-37.0) g/dL RDW (11.5-14.5) % Plt Count (130-400) K/uL MPV (7.2-11.7) fL Neut % (Auto) (50.0-75.0) % Lymph % (Auto) (20.0-40.0) % Posey % (Auto) (0.0-10.0) % Eos % (Auto) (0.0-4.0) % Baso % (Auto) (0.0-2.0) % Neut # (1.8-7.0) K/uL Lymph # (1.0-4.3) K/uL Posey # (0.0-0.8) K/uL Eos # (0.0-0.7) K/uL Baso # (0.0-0.2) K/uL Puncture Site pCO2 (35-45) mm/Hg pO2 (80-100) mm/Hg HCO3 (21-28) mmol/L ABG pH (7.35-7.45) ABG Total CO2 (22-28) mmol/L ABG Base Excess (-2.0-3.0) mmol/L Raudel Test A-a O2 Difference mm/Hg Respiratory Index Mechanical Rate FiO2 % Tidal Volume PEEP Crit Value Called To Crit Value Called By Crit Value Read Back Blood Gas Notified Time Sodium (132-148) mmol/L Potassium (3.6-5.2) mmol/L Chloride (98-107) mmol/L Carbon Dioxide (22-30) mmol/L Anion Gap (10-20) BUN (7-17) mg/dL Creatinine (0.7-1.2) MG/DL Est GFR ( Amer) Est GFR (Non-Af Amer) POC Glucose (mg/dL) 210 H (65-110) mg/dL Random Glucose (65-105) mg/dL Calcium (8.6-10.4) mg/dl Phosphorus (2.5-4.5) mg/dL Magnesium (1.6-2.3) mg/dL Total Bilirubin (0.2-1.3) mg/dL AST (14-36) U/L ALT (9-52) U/L Alkaline Phosphatase (38-126) U/L Total Protein (6.3-8.3) g/dL Albumin (3.5-5.0) g/dL Globulin (2.2-3.9) gm/dL Albumin/Globulin Ratio (1.0-2.1) Laboratory Results - last 24 hr 03/18/17 03/19/17 03/19/17 18:09 00:16 04:30 WBC RBC Hgb Hct MCV MCH MCHC RDW Plt Count MPV Neut % (Auto) Lymph % (Auto) Posey % (Auto) Eos % (Auto) Baso % (Auto) Neut # Lymph # Posey # Eos # Baso # Puncture Site Rr pCO2 18 L* pO2 194 H HCO3 20.7 L ABG pH 7.52 H ABG Total CO2 15.3 L ABG Base Excess -5.5 L Raudel Test Na A-a O2 Difference 140.0 Respiratory Index 0.7 Mechanical Rate 20 FiO2 50.0 Tidal Volume 400 PEEP 5 Crit Value Called To Hyun cavazos icu Crit Value Called By David forman/rt Crit Value Read Back Y Blood Gas Notified Time 515 Sodium Potassium Chloride Carbon Dioxide Anion Gap BUN Creatinine Est GFR ( Amer) Est GFR (Non-Af Amer) POC Glucose (mg/dL) 210 H 115 H Random Glucose Calcium Phosphorus Magnesium Total Bilirubin AST ALT Alkaline Phosphatase Total Protein Albumin Globulin Albumin/Globulin Ratio 03/19/17 03/19/17 03/19/17 06:30 06:46 06:46 WBC 7.0 D RBC 3.93 Hgb 12.0 Hct 36.1 MCV 91.9 MCH 30.5 MCHC 33.2 RDW 13.0 Plt Count 174 MPV 10.2 Neut % (Auto) 74.1 Lymph % (Auto) 18.5 L Posey % (Auto) 5.1 Eos % (Auto) 1.9 Baso % (Auto) 0.4 Neut # 5.2 Lymph # 1.3 Posey # 0.4 Eos # 0.1 Baso # 0.0 Puncture Site pCO2 pO2 HCO3 ABG pH ABG Total CO2 ABG Base Excess Raudel Test A-a O2 Difference Respiratory Index Mechanical Rate FiO2 Tidal Volume PEEP Crit Value Called To Crit Value Called By Crit Value Read Back Blood Gas Notified Time Sodium 145 Potassium 5.7 H Chloride 118 H Carbon Dioxide 17 L Anion Gap 16 BUN 22 H Creatinine 0.6 L Est GFR ( Amer) > 60 Est GFR (Non-Af Amer) > 60 POC Glucose (mg/dL) 113 H Random Glucose 103 Calcium 8.1 L Phosphorus 2.5 Magnesium 2.3 Total Bilirubin 2.1 H AST 49 H D ALT 29 Alkaline Phosphatase 49 Total Protein 6.6 Albumin 3.5 D Globulin 3.2 Albumin/Globulin Ratio 1.1 03/19/17 11:39 WBC RBC Hgb Hct MCV MCH MCHC RDW Plt Count MPV Neut % (Auto) Lymph % (Auto) Posey % (Auto) Eos % (Auto) Baso % (Auto) Neut # Lymph # Posey # Eos # Baso # Puncture Site pCO2 pO2 HCO3 ABG pH ABG Total CO2 ABG Base Excess Raudel Test A-a O2 Difference Respiratory Index Mechanical Rate FiO2 Tidal Volume PEEP Crit Value Called To Crit Value Called By Crit Value Read Back Blood Gas Notified Time Sodium Potassium Chloride Carbon Dioxide Anion Gap BUN Creatinine Est GFR ( Amer) Est GFR (Non-Af Amer) POC Glucose (mg/dL) 85 Random Glucose Calcium Phosphorus Magnesium Total Bilirubin AST ALT Alkaline Phosphatase Total Protein Albumin Globulin Albumin/Globulin Ratio Attending/Attestation - Attestation I have personally seen and examined this patient.: Yes I have fully participated in the care of the patient.: Yes I have reviewed all pertinent clinical information: Yes Notes (Text): 03/19/17 17:28 Patient seen and examined in the intensive care unit. Case discussed with house staff in the morning rounds. No change in mental status Possible terminal extubation in a.m.
[2017-03-19 17:15] VITALS: RESP 12
[2017-03-19] MEDS: Phenylephrine 30 MG in Sodium Chloride 0.9% 250 ML IV PRN (21:51)
[2017-03-20] MEDS: Sodium Chloride 0.9% 1,000 ML IV SCH ×3 (00:59→10:45)
[2017-03-20] MEDS: Phenylephrine 30 MG in Sodium Chloride 0.9% 250 ML IV PRN (07:41)
[2017-03-20 12:39] VITALS: TEMP 99.6
[2017-03-20 13:37] VITALS: BP 87/50; PULSE 100; O2SAT 93
--- NOTE | 2017-03-20 13:48 | CP.CCUPN ---
<Anish Garner - Last Filed: 03/20/17 13:44> CCU Subjective - Physician Review Subjective (Free Text): 03/20/17 13:45 PGY-1 ICU progress note Pt seen and examined at bedside. Intubated and sedated. No overnight events. Remains unresponsive Critical Care Time Spent (in minutes): 35 CCU Objective - Vital Signs / Intake & Output Vital Signs (Last 4 hours): Vital Signs Temp Pulse Resp BP Pulse Ox 03/20/17 12:56 100 H 12 87/50 L 93 L 03/20/17 12:00 99.6 F 94 H 12 94 L 03/20/17 11:59 93 H 12 97/46 L 03/20/17 10:56 82 12 98/50 L 94 L 03/20/17 10:00 94.8 F L 79 12 96 03/20/17 09:56 79 12 95/53 L 95 03/20/17 09:48 84 12 87/50 L 96 Intake and Output (Last 8hrs): Intake & Output 03/19/17 03/20/17 03/20/17 22:59 06:59 14:59 Intake Total 1050 1033 1360 Output Total 1010 880 515 Balance 40 153 845 Weight 142 lb Intake: IV 140 3 320 Intake, IV Amount 910 1030 1040 Right Hand 110 230 305 Right Wrist 800 800 735 Output: Urine 1010 880 515 Urethral (Thornton) 1010 880 515 Other: # Bowel Movements 0 0 0 - Physical Exam Head: Positive for: Atraumatic, Normocephalic Pupils: Positive for: Non-Reactive Conjunctiva: Positive for: Normal Mouth: Positive for: Moist Mucous Membranes Respiratory/Chest: Positive for: Clear to Auscultation, Good Air Exchange, Other (intubated) Cardiovascular: Positive for: Regular Rate and Rhythm, Normal S1, S2 Abdomen: Positive for: Normal Bowel Sounds. Negative for: Distention Upper Extremity: Positive for: NORMAL PULSES Lower Extremity: Positive for: NORMAL PULSES Neurological: Positive for: Other (Unresponsive to pain and verbal stimuli. No reflexes precipitated) Skin: Positive for: Warm, Dry - Medications Active Medications: Active Medications Generic Name Dose Route Start Last Admin Trade Name Freq PRN Reason Stop Dose Admin Sodium Chloride 1,000 mls @ 100 mls/hr 03/18/17 18:45 03/20/17 04:02 Sodium Chloride 0.9% IV 100 mls/hr .Q10H GILBERTO Administration Phenylephrine HCl 30 mg/ 253 mls @ 10.12 mls/hr 03/18/17 20:33 03/20/17 09:53 Sodium Chloride IV 98.81 mcg/min .Q24H PRN 50 mls/hr TITRATE PER MD ORDER Titration Protocol 20 MCG/MIN Pantoprazole Sodium 40 mg 03/19/17 10:00 03/20/17 09:53 Protonix Inj IVP 40 mg DAILY GILBERTO Administration - Patient Studies Lab Studies: Microbiology Studies 03/18/17 Unknown MRSA Culture (Admit) - Final Nose MRSA NOT DETECTED Lab Studies 03/20/17 03/20/17 03/20/17 Range/Units 11:36 05:46 00:16 POC Glucose (mg/dL) 99 100 94 (65-110) mg/dL 03/19/17 Range/Units 17:47 POC Glucose (mg/dL) 99 (65-110) mg/dL Laboratory Results - last 24 hr 03/19/17 03/20/17 03/20/17 17:47 00:16 05:46 POC Glucose (mg/dL) 99 94 100 03/20/17 11:36 POC Glucose (mg/dL) 99 Fingerstick Blood Sugar Results: 99 Review of Systems - Review of Systems Systems not reviewed;Unavailable: Intubated Assessment/Plan - Assessment and Plan (Free Text) Assessment: 76 yo F with significant CVA, seen on CT, now unresponsive requiring mechanical ventilation. Plan: Pt terminally extubated at 13:22 with family at bedside. She at 13:37. Primary notified. <Juanjose Barrera - Last Filed: 03/20/17 14:26> CCU Objective - Vital Signs / Intake & Output Vital Signs (Last 4 hours): Vital Signs Temp Pulse Resp BP Pulse Ox 03/20/17 12:56 100 H 12 87/50 L 93 L 03/20/17 12:00 99.6 F 94 H 12 94 L 03/20/17 11:59 93 H 12 97/46 L 03/20/17 10:56 82 12 98/50 L 94 L Intake and Output (Last 8hrs): Intake & Output 03/19/17 03/20/17 03/20/17 22:59 06:59 14:59 Intake Total 1050 1033 1360 Output Total 1010 880 515 Balance 40 153 845 Weight 142 lb Intake: IV 140 3 320 Intake, IV Amount 910 1030 1040 Right Hand 110 230 305 Right Wrist 800 800 735 Output: Urine 1010 880 515 Urethral (Thornton) 1010 880 515 Other: # Bowel Movements 0 0 0 - Medications Active Medications: Active Medications Generic Name Dose Route Start Last Admin Trade Name Freq PRN Reason Stop Dose Admin Sodium Chloride 1,000 mls @ 100 mls/hr 03/18/17 18:45 03/20/17 04:02 Sodium Chloride 0.9% IV 100 mls/hr .Q10H GILBERTO Administration Phenylephrine HCl 30 mg/ 253 mls @ 10.12 mls/hr 03/18/17 20:33 03/20/17 09:53 Sodium Chloride IV 98.81 mcg/min .Q24H PRN 50 mls/hr TITRATE PER MD ORDER Titration Protocol 20 MCG/MIN Pantoprazole Sodium 40 mg 03/19/17 10:00 03/20/17 09:53 Protonix Inj IVP 40 mg DAILY GILBERTO Administration - Patient Studies Lab Studies: Microbiology Studies 03/18/17 Unknown MRSA Culture (Admit) - Final Nose MRSA NOT DETECTED Lab Studies 03/20/17 03/20/17 03/20/17 Range/Units 11:36 05:46 00:16 POC Glucose (mg/dL) 99 100 94 (65-110) mg/dL 03/19/17 Range/Units 17:47 POC Glucose (mg/dL) 99 (65-110) mg/dL Laboratory Results - last 24 hr 03/19/17 03/20/17 03/20/17 17:47 00:16 05:46 POC Glucose (mg/dL) 99 94 100 03/20/17 11:36 POC Glucose (mg/dL) 99 Attending/Attestation - Attestation I have personally seen and examined this patient.: Yes I have fully participated in the care of the patient.: Yes I have reviewed all pertinent clinical information: Yes Notes (Text): 03/20/17 14:25 I have seen and examined the patient. Medical records, lab studies, and imaging were reviewed by me and a management plan was formulated on multidisciplinary rounds with resident . I agree with their above documented assessment and plan. Spoke with family who agreed to terminal extubation. Patient was terminally extubated and at 1337. Critical Care Time 35 minutes. Multi-disciplinary rounds were performed with house staff, nursing, speech therapy, respiratory therapy, pharmacy and nutrition with integrated input from the primary team/attending and other consulting services. The documented time is cumulative and includes review of patient data/exams/labs/chart review and examination of the patient on rounds and throughout the day; time is exclusive of any procedures or teaching time.
--- NOTE | 2017-03-20 13:52 | CP.PCM.PRO ---
<Anish Garner - Last Filed: 03/20/17 14:56> Pronouncement of Note - Clinical Findings Physical Exam: No Response Verbal/Painful Stimuli, Absent Peripheral Pulses{ Carotid & Femoral}, Absent Heart & Breath Sounds, No Pupillary Light Reflex, No Corneal Reflex, Pupils Fixed & Dilated, Absence of Vital Signs - Pronouncement Time Time of Pronouncement of : 13:37 - Notifications Pronouncement Notifications: Family Notified, Atending Notified - [place] [id number] <Jt Arzola - Last Filed: 03/20/17 15:07> Attending/Attestation - Attestation I have personally seen and examined this patient.: Yes I have fully participated in the care of the patient.: Yes I have reviewed all pertinent clinical information: Yes Notes (Text): 03/20/17 15:06 Medical attending: I filled out the the [place] ED ERS. The patient as documented before was terminal extubation. As mentioned previously she had a very large right-sided frontal and parietal area hemorrhage with uncal herniation Thank you very much, Jt rAzola
--- NOTE | 2017-03-20 15:50 | CP.PCM.DIS ---
Provider - Provider Date of Admission: 03/18/17 11:42 Attending physician: Jt Arzola DO Time Spent in preparation of Discharge (in minutes): 29 Diagnosis - Discharge Diagnosis (1) Intracranial hemorrhage Status: Acute Comment: Patient was terminally extubated today 03/20/2017. As documented before the patient had very extensive right frontal, right parietal area of hemorrhage possibly from the ICA. The CAT scan showed that she had extensive edema, swelling and also midline shift saw that she had "herniation as well the patient was not conscious when she came to the emergency room she had already been intubated in the ER she was made DNR the emergency room. I did see her in the ER and I saw her the next day. She did not have any pupillary light response , her eyes were dilated and fixed. Today I filled out the [place] EDRS after I was notified patient had Hospital Course - Lab Results Lab Results: Micro Results 03/18/17 Unknown Nose MRSA Culture (Admit) - Final MRSA NOT DETECTED Most Recent Lab Values WBC 7.0 K/uL (4.8-10.8) D 03/19/17 06:46 RBC 3.93 Mil/uL (3.80-5.20) 03/19/17 06:46 Hgb 12.0 g/dL (11.0-16.0) 03/19/17 06:46 Hct 36.1 % (34.0-47.0) 03/19/17 06:46 MCV 91.9 fL (81.0-99.0) 03/19/17 06:46 MCH 30.5 pg (27.0-31.0) 03/19/17 06:46 MCHC 33.2 g/dL (33.0-37.0) 03/19/17 06:46 RDW 13.0 % (11.5-14.5) 03/19/17 06:46 Plt Count 174 K/uL (130-400) 03/19/17 06:46 MPV 10.2 fL (7.2-11.7) 03/19/17 06:46 Neut % (Auto) 74.1 % (50.0-75.0) 03/19/17 06:46 Lymph % (Auto) 18.5 % (20.0-40.0) L 03/19/17 06:46 Latimer % (Auto) 5.1 % (0.0-10.0) 03/19/17 06:46 Eos % (Auto) 1.9 % (0.0-4.0) 03/19/17 06:46 Baso % (Auto) 0.4 % (0.0-2.0) 03/19/17 06:46 Neut # 5.2 K/uL (1.8-7.0) 03/19/17 06:46 Lymph # 1.3 K/uL (1.0-4.3) 03/19/17 06:46 Latimer # 0.4 K/uL (0.0-0.8) 03/19/17 06:46 Eos # 0.1 K/uL (0.0-0.7) 03/19/17 06:46 Baso # 0.0 K/uL (0.0-0.2) 03/19/17 06:46 PT 10.2 SECONDS (9.7-12.2) 03/18/17 10:33 INR 0.9 03/18/17 10:33 APTT 22 SECONDS (21-34) 03/18/17 10:33 Puncture Site Rr 03/19/17 04:30 pCO2 18 mm/Hg (35-45) L* 03/19/17 04:30 pO2 194 mm/Hg (80-100) H 03/19/17 04:30 HCO3 20.7 mmol/L (21-28) L 03/19/17 04:30 ABG pH 7.52 (7.35-7.45) H 03/19/17 04:30 ABG Total CO2 15.3 mmol/L (22-28) L 03/19/17 04:30 ABG O2 Saturation 100.1 % (95-98) H 03/18/17 11:30 ABG Base Excess -5.5 mmol/L (-2.0-3.0) L 03/19/17 04:30 Raudel Test Na 03/19/17 04:30 ABG Potassium 1.9 mmol/L (3.6-5.2) L* 03/18/17 11:30 A-a O2 Difference 140.0 mm/Hg 03/19/17 04:30 Respiratory Index 0.7 03/19/17 04:30 Sodium 143.0 mmol/l (132-148) 03/18/17 11:30 Chloride 116.0 mmol/L (98-107) H 03/18/17 11:30 Glucose 173 mg/dl (65-105) H 03/18/17 11:30 Lactate 2.5 mmol/L (0.7-2.1) H 03/18/17 11:30 Mechanical Rate 20 03/19/17 04:30 FiO2 50.0 % 03/19/17 04:30 Tidal Volume 400 03/19/17 04:30 PEEP 5 03/19/17 04:30 Crit Value Called To Hyun cavazos icu 03/19/17 04:30 Crit Value Called By David forman/rt 03/19/17 04:30 Crit Value Read Back Y 03/19/17 04:30 Blood Gas Notified Time 515 03/19/17 04:30 Sodium 145 mmol/L (132-148) 03/19/17 06:46 Potassium 5.7 mmol/L (3.6-5.2) H 03/19/17 06:46 Chloride 118 mmol/L (98-107) H 03/19/17 06:46 Carbon Dioxide 17 mmol/L (22-30) L 03/19/17 06:46 Anion Gap 16 (10-20) 03/19/17 06:46 BUN 22 mg/dL (7-17) H 03/19/17 06:46 Creatinine 0.6 MG/DL (0.7-1.2) L 03/19/17 06:46 Est GFR ( Amer) > 60 03/19/17 06:46 Est GFR (Non-Af Amer) > 60 03/19/17 06:46 POC Glucose (mg/dL) 99 mg/dL (65-110) 03/20/17 11:36 Random Glucose 103 mg/dL (65-105) 03/19/17 06:46 Hemoglobin A1c 6.2 % (4.2-6.5) 03/18/17 10:34 Calcium 8.1 mg/dl (8.6-10.4) L 03/19/17 06:46 Phosphorus 2.5 mg/dL (2.5-4.5) 03/19/17 06:46 Magnesium 2.3 mg/dL (1.6-2.3) 03/19/17 06:46 Total Bilirubin 2.1 mg/dL (0.2-1.3) H 03/19/17 06:46 AST 49 U/L (14-36) H D 03/19/17 06:46 ALT 29 U/L (9-52) 03/19/17 06:46 Alkaline Phosphatase 49 U/L (38-126) 03/19/17 06:46 Troponin I 0.0180 ng/mL (0.00-0.120) 03/18/17 10:33 Total Protein 6.6 g/dL (6.3-8.3) 03/19/17 06:46 Albumin 3.5 g/dL (3.5-5.0) D 03/19/17 06:46 Globulin 3.2 gm/dL (2.2-3.9) 03/19/17 06:46 Albumin/Globulin Ratio 1.1 (1.0-2.1) 03/19/17 06:46 Triglycerides 162 mg/dL (0-149) H 03/18/17 10:33 Cholesterol 237 mg/dL (0-199) H 03/18/17 10:33 LDL Cholesterol Direct 178 mg/dL (0-129) H 03/18/17 10:33 HDL Cholesterol 47 mg/dL (30-70) 03/18/17 10:33 Arterial Blood Potassium 1.9 mmol/L (3.6-5.2) L* 03/18/17 11:30 Blood Type A POSITIVE 03/18/17 10:33 Antibody Screen Negative 03/18/17 10:33 - Hospital Course Hospital Course: Patient after patient was made DNR DNI and family wished to allow a natural . She was prounced at 13:37 on 03/20/2017. Discharge Exam - Head Exam Head Exam: ATRAUMATIC, NORMAL INSPECTION, NORMOCEPHALIC Discharge Plan - Follow Up Plan Condition: CRITICAL Disposition: HOME/ ROUTINE
--- NOTE | 2017-03-23 21:44 | CARD ---
APPROVED REPORT EKG Measurement Heart [id number] <Conclusion> Sinus bradycardia with 1st degree AV block Otherwise normal ECG
== END 2017-03-20 13:37 | DRG 64 ==
LOC: C.ER 10:24 → EDBD 10:24 → C.9I 11:42
PROVIDERS: ADMIT Hospitalist; ATTEND Hospitalist
PROC: 0BH17EZ Insertion of Endotracheal Airway into Trachea, Via Natural or Artificial Opening (ICD-10-PCS; principal; 2017-03-18)
PROC: 5A1945Z Respiratory Ventilation, 24-96 Consecutive Hours (ICD-10-PCS; 2017-03-18)
DX: I61.5 Nontraumatic intracerebral hemorrhage, intraventricular (principal); G93.6 Cerebral edema; G93.5 Compression of brain; R40.20 Unspecified coma; I10 Essential (primary) hypertension; M17.9 Osteoarthritis of knee, unspecified; Z51.5 Encounter for palliative care; Z66 Do not resuscitate